=== PATIENT | female | born 1985 | race Caucasian/White ===

== ENCOUNTER 2016-09-30 11:24 | Emergency (ER) | payer OTHER ==
[2016-09-30] MEDS ORDERED: ALBUTEROL/IPRATROPIUM 2.5/0.5 MG 3 ML/EACH DOSE ONE (12:31)
== END 2016-09-30 13:11 | disposition home or self-care (01) ==
LOC: ED 11:24
DX: J45.909 Unspecified asthma, uncomplicated (principal); F17.210 Nicotine dependence, cigarettes, uncomplicated

== ENCOUNTER 2016-11-03 20:58 | Emergency (ER) | payer OTHER ==
[2016-11-03 22:44] LABS: ABSOLUTE NEUTROPHIL COUNT 5.6 K/mm3 (1.8-7.7); BASO % 0.5 % (0.2-1.0); EOS # 0.1 (0.0-0.5); EOS % 1.4 % (0.9-2.9); HEMATOCRIT 39.2 % (37.0-47.0); HEMOGLOBIN 12.7 gm/l (12.0-16.0); IMM NEUT% 0.2 % (0-1); LYMPH # 2.4 (1.0-4.8); LYMPH % 27.6 % (15-45); MEAN CORPUSCULAR HEMOGLOBIN 27.9 pg (27.0-31.0); MEAN CORPUSCULAR HGB CONC 32.4 g/dl (33.0-37.0); MONO # 0.4 (0.0-0.8); MONO % 5.1 % (4-12); NEUT % 65.2 % (43-75); PLATELET COUNT 250 K/mm3 (130-400); RED CELL DISTRIBUTION WIDTH 14.9 % (11.5-14.5)
[2016-11-03 22:51] LABS: SPECIFIC GRAVITY 1.025 (1.001-1.030); URINE BILIRUBIN NEGATIVE (NEGATIVE); URINE BLOOD 2+ (NEGATIVE); URINE GLUCOSE (UA) NEGATIVE (NEGATIVE); URINE LEUKOCYTE ESTERASE NEGATIVE (NEGATIVE); URINE NITRITE NEGATIVE (NEGATIVE); URINE PROTEIN TRACE (NEGATIVE); URINE UROBILINOGEN NORMAL (0-1 mg/dl)
[2016-11-03 22:54] LABS: URINE APPEARANCE SL CLOUDY; URINE COLOR YELLOW
[2016-11-03 22:57] LABS: ALB/GLOB RATIO 1.3 (>1.0); ALBUMIN 4.1 gm/dL (3.5-5.7); CALCIUM 9.6 mg/dL (8.6-10.3)
[2016-11-03 23:01] LABS: URINE EPITHELIAL CELLS 0-2 /hpf; URINE RBC 0-2 /hpf
[2016-11-03 23:02] LABS: URINE BACTERIA RARE; URINE WBC 0-2 /hpf
[2016-11-04] MEDS ORDERED: ACETAMINOPHEN 325 MG TABLET ONE (00:42)
--- NOTE | 2016-11-04 07:41 | US ---
OB COMP <14 WKS, OB TRANSVAGINAL HISTORY: Bleeding with positive test. The patient is of unknown dates. COMPARISONS: None. FINDINGS: Transabdominal and transvaginal ultrasonography was performed demonstrating an intrauterine fluid collection. The mean diameter of the collection measures 1.1 cm, equivalent to 5 weeks 1 day gestational age. The crown to rump length measures 0.83 cm, equivalent to 6 weeks 6 days gestational age. The mean ultrasound gestational age is 6 weeks 6 days, based on the crown to rump length, with a calculated sonographic EDC of 06/23/2017. No adjacent fluid collections are identified. There is cardiac activity present with a heart rate of 138 bpm. The maternal right ovary measures 3.3 x 1.1 x 2.4 cm. The left ovary measures 1.9 x 1.2 x 2.0 cm. No adnexal masses or free fluid are seen. IMPRESSION: 1. A single live intrauterine gestation with mean ultrasound gestational age 6 weeks 6 days. The calculated sonographic EDC is 06/23/2017. 2. No adnexal masses or free fluid observed. The findings were called to the emergency room at 0019 hours, 11/03/2016, by [facility] radiology.
== END 2016-11-04 00:48 | disposition home or self-care (01) ==
LOC: ED 20:58 → SUPCPDRO 20:58 → ED 11-04 00:48
DX: O20.0 Threatened abortion (principal); O10.911 Unspecified pre-existing hypertension complicating pregnancy, first trimester; O99.331 Smoking (tobacco) complicating pregnancy, first trimester; F17.210 Nicotine dependence, cigarettes, uncomplicated; Z3A.01 Less than 8 weeks gestation of pregnancy